=== PATIENT | female | born 1950 | race Caucasian/White ===

== ENCOUNTER → 2017-10-19 11:12 | Outpatient (CLI) | payer MEDICARE, OTHER, SELFPAY ==
--- NOTE | 2017-10-19 11:19 | RAD_ITS ---
STUDY: X-RAY - PELVIS AND LEFT HIP REASON FOR EXAM: Female, 67 years old. Left hip pain TECHNIQUE: Radiological exam, hip, unilateral, with pelvis when performed; 2 or 3 views. COMPARISON: None. FINDINGS: The right hip joint is normal. There is severe osteoarthritis of the left hip joint demonstrated by narrowing of the hip joint with subarticular sclerotic and cystic changes. There is buttressing of the femoral neck. No fractures RAD/HIP, UNI W/ Pelvis 2-3 Views IMPRESSION: Severe osteoarthritis of the left hip joint. No fracture Electronically Signed: Lawson Melissa, at 6:00 EDT Tel , Service support ,
== END ==
PROVIDERS: Family Provider Family Medicine; PCP Family Medicine; Visit Provider Family Medicine
DX: M16.12 Unilateral primary osteoarthritis, left hip (principal)
CPT/HCPCS: 73502

== ENCOUNTER → 2017-10-28 08:00 | Outpatient (CLI) | payer MEDICARE, OTHER, SELFPAY ==
[2017-10-28 10:14] LABS: Absolute Lymphocyte Count 0.99 X10^3/ul (0.83-4.51); Absolute Neutrophil Count 4.1 X10^3/uL (2.0-7.7); Basophil# 0.05 X10^3/uL; Basophil% 0.9 % (0-1); Eosinophil# 0.16 X10^3/uL; Eosinophils% 2.8 % (0-5); Hematocrit 41.4 % (37-47); Hemoglobin 13.3 g/dl (12.0-15.0); Lymphocyte # 0.99 X10^3/ul (4.0); Lymphocyte % 17.3 % (19-41); Mean Corp Hgb Conc 32.1 g/gl (32-36); Mean Corpuscular Hgb 30.2 pg (27.0-32.0); Mean Corpuscular Volume 94.1 fL (81-99); Mean Platelet Vol. 10.4 fl (6.2-12.0); Monocyte# 0.45 X10^3/uL; Monocyte% 7.9 % (0-10); Neutrophil # 4.07 X10^3/uL (2.7-7.7); Neutrophil % 70.9 % (47-70); Platelet Count 296 K/mm3 (150-450); RBC Distribution Width CV 12.7 % (11.6-14.6); RBC Distribution Width SD 43.9 fl (35.1-43.9); White Blood Count 5.7 K/mm3 (4.4-11.0)
[2017-10-28 10:17] LABS: POSITIVE COUNT NO; POSITIVE DIFFERENTIAL NO; POSITIVE MORPHOLOGY NO
[2017-10-28 10:35] LABS: Anion Gap 10 (5-15); BUN 15 mg/dL (7-18); BUN/Creat Ratio 16.3 RATIO (10-20); Calcium,Total 9.5 mg/dL (8.5-10.1); Chloride 106 mmol/L (98-107); Creatinine, Serum 0.92 mg/dL (0.55-1.02); EST Glomerular Filtration Rate 64 mL/min (>60); Est Glom Filt Rate - Afr Amer 78 mL/min (>60); Glucose 88 mg/dL (74-106); Potassium 4.2 mmol/L (3.5-5.1); Sodium Level 143 mmol/L (136-145); Thyroid Stim Hormone (TSH) 2.69 uIU/mL (0.358-3.74)
[2017-10-29 08:35] LABS: Vitamin D,25 Hydroxy 33.6 ng/mL (29.95-100.01)
== END ==
PROVIDERS: Family Provider Family Medicine; PCP Family Medicine; Visit Provider Family Medicine
DX: R53.83 Other fatigue (principal)
CPT/HCPCS: 36415; 80048; 82306; 84443; 85025

== ENCOUNTER → 2018-11-18 07:08 | Outpatient (CLI) | payer MEDICARE, OTHER, SELFPAY ==
[2018-11-18 07:19] LABS: Mucous, Urine 0 SEEN /hpf (<or=2+); Red Blood Cells-Urine 0 SEEN /hpf (0-5)
[2018-11-18 10:50] LABS: Absolute Lymphocyte Count 1.13 X10^3/uL (0.83-4.51); Basophil# 0.05 X10^3/uL; Color, Urine Yellow (Yellow); Eosinophil# 0.14 X10^3/uL; Eosinophils% 2.9 % (0-5); Glucose, Dipstick Normal (Normal); Hematocrit 41.1 % (37-47); Hemoglobin 12.8 g/dL (12.0-15.0); Ketone-Dipstick Negative (Negative); Leukocyte Esterase-Dipstick Negative /ul (Negative); Lymphocyte # 1.13 X10^3/ul (4.0); Lymphocyte % 23.7 % (19-41); Mean Corp Hgb Conc 31.1 g/dL (32-36); Mean Corpuscular Volume 96.5 fL (81-99); Mean Platelet Vol. 10.6 fl (6.2-12.0); Monocyte# 0.44 X10^3/uL; Monocyte% 9.2 % (0-10); NRBC Flagged by Analyzer 0 % (0-5); Nitrite-Dipstick Negative (Negative); Occult Blood-Urine Negative /ul (Negative); Platelet Count 276 K/mm3 (150-450); Protein-Dipstick Negative (Negative); RBC Distribution Width CV 13.1 % (11.6-14.6); RBC Distribution Width SD 46.9 fl (35.1-43.9); Red Blood Count 4.26 M/mm3 (4.2-5.4); Specific Gravity, Urine 1.015 (1.002-1.030); Urine Bilirubin Dipstick Negative (Negative); Urine Clarity Cloudy (Clear); Urine Urobilinogen Normal (Normal); White Blood Count 4.8 K/mm3 (4.4-11.0)
[2018-11-18 10:59] LABS: Squamous Epithelial Cells - UA 0-5 SEEN /hpf (5-10); White Blood Cells 0-5 SEEN /hpf (0-5)
[2018-11-18 11:00] LABS: Amorphous Sediment 3+; Bacteria 1+ /hpf (None Seen)
[2018-11-18 11:13] LABS: Anion Gap 8 (5-15); BUN 16 mg/dL (7-18); BUN/Creat Ratio 17.2 RATIO (10-20); Calcium,Total 9.7 mg/dL (8.5-10.1); Chloride 107 mmol/L (98-107); Creatinine, Serum 0.93 mg/dL (0.55-1.02); EST Glomerular Filtration Rate 63 mL/min (>60); Est Glom Filt Rate - Afr Amer 77 mL/min (>60); Glucose 83 mg/dL (74-106); Potassium 4.2 mmol/L (3.5-5.1); Sodium Level 143 mmol/L (136-145)
[2019-04-18 08:13] VITALS: BMI 16.5
== END ==
PROVIDERS: Family Provider Family Medicine; PCP Family Medicine; Referring Provider Family Medicine; Visit Provider Family Medicine
DX: R59.0 Localized enlarged lymph nodes (principal); R30.0 Dysuria; Z13.1 Encounter for screening for diabetes mellitus
CPT/HCPCS: 36415; 80048; 81001; 85025

== ENCOUNTER → 2018-11-22 10:44 | Outpatient (CLI) | payer MEDICARE, OTHER, SELFPAY ==
--- NOTE | 2018-11-22 10:50 | US_ITS ---
STUDY: THYROID ULTRASOUND REASON FOR EXAM: Female, 68 years old. Palpable left neck nodule TECHNIQUE: Ultrasound evaluation of the thyroid was performed with real-time and static miller-scale imaging. COMPARISON: None. FINDINGS: RIGHT LOBE: The right lobe of the thyroid gland measures 3.9 x 1.2 x 1.1 cm. There is a homogeneous echotexture. There are no demonstrated solid, cystic or complex lesions. LEFT LOBE: The left lobe of the thyroid gland measures 3.2 x 1.1 x 1 cm. There is a homogeneous echotexture. There are 2 solid nodules. The larger is solid measuring 1.3 x 1.2 x 2.6 cm with irregular margins and intranodular vascularity. The smaller nodule is 6 x 4 x 2 mm.. ISTHMUS: The isthmus measures 1 mm . The regional lymph nodes are normal. US/Head/Neck Soft Tissue IMPRESSION: 2 nodules in the left lobe of thyroid larger which measures 1.3 x 1.2 x .6 cm. If concern for malignancy fine-needle aspiration utilizing sonographic guidance recommended Electronically Signed: Timur Reich MD at 22:20 EDT , Service support ,
== END ==
PROVIDERS: Family Provider Family Medicine; PCP Family Medicine; Referring Provider Family Medicine; Visit Provider Family Medicine
DX: R59.0 Localized enlarged lymph nodes (principal)
CPT/HCPCS: 76536

== ENCOUNTER → 2018-12-09 15:52 | Outpatient (CLI) | payer MEDICARE, OTHER, SELFPAY ==
--- NOTE | 2018-12-09 13:00 | ASPS_PTH ---
PATIENT: JANE DAVIS LOC: [facility] U#:[id number] AGE/SX: 74/F ROOM: RE12/09/[address]: Dr. Ravinder Chappell MD : 1950 BED: DIS: SPEC #: [id number] RECD: 12/09/18 14:23 STATUS: PHILIPPE RERodney #: [id number] SARAH: 12/09/18 13:[address]: Ravinder Chappell DEPT: CYTOLOGY RECD BY: Marie Hunter ENTERED: 12/12/18 07:36 SP TYPE: ASPIRATION OTHR DR: Dr. Ty Ramsay MD Tissues: Thyroid gland, NOS Procedures: Special Stain Group II Cytology Other HEADER OPERATION: Left thyroid FNA PRE-OP DIAGNOSIS: Left thyroid nodule TISSUE SUBMITTED: Left thyroid FNA 6 slides DIAGNOSIS CYTOLOGY Fine needle aspiration, left thyroid nodule (smears): Adequate for evaluation. Negative, consistent with benign follicular nodule with cystic change. AM:paco 12/12/18 CYTOLOGY STUDY Slides are reviewed. CYTOLOGY GROSS Received are six smears labeled with the patient's name and designated per the requisition as left thyroid. Submitted for staining. / paco 12/09/18 TC:5 CPT: 80189
[2018-12-09 13:05] VITALS: BMI 16.5
== END ==
PROVIDERS: Family Provider Family Medicine; PCP Family Medicine; Referring Provider Surgery; Visit Provider Surgery
DX: E04.2 Nontoxic multinodular goiter (principal)
CPT/HCPCS: 88161; 88313

== ENCOUNTER → 2018-12-27 10:34 | Outpatient (CLI) | payer MEDICARE, OTHER, SELFPAY ==
[2018-12-09 13:05] VITALS: BMI 16.5
--- NOTE | 2018-12-27 10:37 | BI_ITS ---
MAMMOGRAPHY - BILATERAL SCREENING REASON FOR EXAM: Female, 68 years old. Routine annual screening examination. PERTINENT HISTORY: Sister with breast cancer. TECHNIQUE: Digital bilateral breast hank (3D mammographic acquisition) in the CC and MLO projections. 2-D mediolateral oblique (MLO) and craniocaudad (CC) views of both breasts were obtained. CAD: Full Field Digital Mammography with Computer Added Detection was performed. COMPARISON: Comparison is made with prior study dated November 24, 2016 and September 02, 2015. FINDINGS: Breast Composition: The breasts are extremely dense, which lowers the sensitivity of mammography. There are no dominant masses or suspicious calcifications. No other significant abnormalities are identified. There has been no significant change since the prior study. BI/SCREEN MAMM (CAD) W/HANK BILAT IMPRESSION: Stable bilateral screening mammogram. Yearly follow-up mammogram recommended. (A) ASSESSMENT CATEGORY: BIRADS Category 1: Negative. A letter regarding these results will be sent to the patient by the facility within 30 days. Approximately 10% of breast cancers are not detected by mammography. A normal mammogram should not delay biopsy of a clinically suspicious abnormality. [id number] Electronically Signed: Parish Worley, at 14:05 EDT , Service support ,
== END ==
PROVIDERS: Family Provider Family Medicine; PCP Family Medicine; Referring Provider Nurse Practitioner Women's Health; Visit Provider Nurse Practitioner Women's Health
DX: Z12.31 Encounter for screening mammogram for malignant neoplasm of breast (principal)
CPT/HCPCS: 77063; 77067

== ENCOUNTER → 2019-06-08 15:11 | Outpatient (CLI) | payer MEDICARE, OTHER, SELFPAY ==
[2019-04-18 08:13] VITALS: BMI 16.5
--- NOTE | 2019-06-08 15:17 | RAD_ITS ---
STUDY: X-RAY - LUMBAR SPINE REASON FOR EXAM: Female, 69 years old. low back pain, left hip pain worsening TECHNIQUE: 5 view(s) of the lumbar spine were obtained. COMPARISON: None FINDINGS: Normal lumbar lordosis. There is no substantial scoliosis. There is a normal alignment of the vertebrae. There is generalized demineralization of the vertebral bodies. Normal disc space heights. There is no demonstrated fracture. Atherosclerotic plaque is present. The soft tissue structures are unremarkable. Surgical clips seen in the pelvis. RAD/L/S Spine Min 4 Views IMPRESSION: Demineralization of the lumbar spine. Electronically Signed: Ryan Priest MD at 19:58 EDT , Service support ,
--- NOTE | 2019-06-08 15:17 | RAD_ITS ---
STUDY: X-RAY - PELVIS AND LEFT HIP REASON FOR EXAM: Female, 69 years old. low back pain, left hip pain worsening TECHNIQUE: 3 views of the pelvis and hip. COMPARISON: None. FINDINGS: There is a non-specific bowel gas pattern. Normal visualized soft tissue structures. Normal bilateral iliac wings, sacroiliac joints and visualized sacrum. Normal bilateral superior and inferior pubic rami. Normal pubic symphysis. Normal bilateral ischial tuberosities. There is severe narrowing and secondary degenerative changes of the left hip joint. The right hip joint space is preserved. Surgical clips seen in the pelvis. A moderate to large amount of stool is seen throughout the colon. RAD/HIP, UNI W/ Pelvis 2-3 Views IMPRESSION: Severe left hip DJD Electronically Signed: Ryan Priest MD at 19:58 EDT , Service support ,
== END ==
PROVIDERS: PCP Family Medicine; Referring Provider Family Medicine; Visit Provider Family Medicine
DX: M25.552 Pain in left hip (principal); M16.12 Unilateral primary osteoarthritis, left hip; M54.5 Low back pain
CPT/HCPCS: 72110; 73502

== ENCOUNTER → 2019-08-22 14:58 | Outpatient (CLI) | payer MEDICARE, OTHER, SELFPAY ==
[2019-04-18 08:13] VITALS: BMI 16.5
[2019-08-22 17:46] LABS: Albumin, Serum 4.2 g/dL (3.2-5.0)
== END ==
PROVIDERS: PCP Family Medicine; Referring Provider Specialist; Visit Provider Specialist
DX: Z01.812 Encounter for preprocedural laboratory examination (principal)
CPT/HCPCS: 36415; 82040

== ENCOUNTER 2019-08-30 07:09 | Observation (INO) | payer MEDICARE, OTHER, SELFPAY ==
[2019-04-18 08:13] VITALS: BMI 16.5
--- NOTE | 2019-08-16 16:47 | EKG12_ITS ---
Test Reason : PRE OP Blood Pressure : / mmHG Vent. Rate : 074 BPM Atrial Rate : 074 BPM P-R Int : 124 ms QRS Dur : 078 ms QT Int : 378 ms P-R-T Axes : 085 084 063 degrees QTc Int : 419 ms Normal sinus rhythm Normal ECG Confirmed by VICKIE GALO ([id number]), design editor PARRISH MONTEMAYOR ([id number]) on 08/24/2019 7:49:08 AM Referred By: Linda Vigil Confirmed By:VICKIE GALO
[2019-08-16 16:53] LABS: Absolute Lymphocyte Count 1.08 X10^3/uL (0.83-4.51); Absolute Neutrophil Count 5.5 X10^3/uL (2.0-7.7); Basophil# 0.06 X10^3/uL; Basophil% 0.8 % (0-1); Eosinophil# 0.08 X10^3/uL; Eosinophils% 1.1 % (0-5); Hematocrit 41.5 % (37-47); Hemoglobin 13.2 g/dL (12.0-15.0); Lymphocyte # 1.08 X10^3/ul (4.0); Lymphocyte % 14.8 % (19-41); Mean Corp Hgb Conc 31.8 g/dL (32-36); Mean Corpuscular Volume 97.4 fL (81-99); Mean Platelet Vol. 10.4 fl (6.2-12.0); Monocyte% 8.2 % (0-10); NRBC Flagged by Analyzer 0 % (0-5); Neutrophil # 5.45 X10^3/uL (2.7-7.7); Neutrophil % 74.8 % (47-70); Platelet Count 313 K/mm3 (150-450); RBC Distribution Width CV 12.3 % (11.6-14.6); RBC Distribution Width SD 44.1 fl (35.1-43.9); Red Blood Count 4.26 M/mm3 (4.2-5.4); White Blood Count 7.3 K/mm3 (4.4-11.0)
[2019-08-16 17:24] LABS: Anion Gap 7 (5-15); BUN 17 mg/dL (7-18); BUN/Creat Ratio 24.3 RATIO (10-20); Calcium,Total 9.6 mg/dL (8.5-10.1); Chloride 106 mmol/L (98-107); EST Glomerular Filtration Rate 88 mL/min (>60); Est Glom Filt Rate - Afr Amer 106 mL/min (>60); Glucose 93 mg/dL (74-106); Potassium 4.3 mmol/L (3.5-5.1); Sodium Level 141 mmol/L (136-145)
[2019-08-17 10:22] LABS: Thyroid Stim Hormone (TSH) 2.46 uIU/mL (0.358-3.74)
--- NOTE | 2019-08-22 20:01 | HP.PCM_ITS ---
History and Physical History and Physical Patient Name: Basia Garcia : 1950 From: SANDI FAM NP DATE OF SURGERY: 08/30/2019 SCHEDULED PROCEDURE: Left total hip arthroplasty HISTORY OF PRESENT ILLNESS: Preoperative history and physical exam was performed on August 16, 2019. This is a 69-year-old female who has been having ongoing left hip pain for years. Her pain is 4 on a scale of 10 on average and 10 on a scale of 10 with activity. She describes the pain as aching, sharp, sore and burning. She reports difficulty dressing, performing housework, shopping and leisure activities such as walking and biking. The patient has stumbled due to the left hip pain. She does report to start up pain. The pain is located in the left groin and lateral hip. The pain does wake her at night. The patient does perceive the left leg is shorter than the contralateral leg. Previous conservative treatments include rest, Tylenol, nonsteroidal anti-inflammatories, heat, elevation, physical therapy and home exercises. She denies chest pain, fevers, chills, shortness of breath or difficulty breathing. She currently reports taking azithromycin due to a sinus infection. The patient has a medical history for a transient ischemic attack at the age of 22. Surgical clearance has been obtained from Dr. Ramsay pending labs and EKG. After failing conservative measures and discussing treatment options with Dr. Iam Prieto the patient does wish to proceed with a left total hip arthroplasty. REVIEW OF SYSTEMS: ROS: Const: Denies anorexia, anxiety, change in appetite, fever and weight change,hard of hearing, and vision problems. CV: Denies chest pain, heart murmur, irregular heartbeat and peripheral vascular disease. Resp: Denies asthma, cough, pneumonia, sleep apnea, shortness of breath, tuberculosis and wheezing. GI: Reports constipation, but denies diarrhea, heartburn, nausea, bloody stools and vomiting, and difficulty swallowing. : Reports bladder infection, but denies incontinence. Musculo: Denies leg swelling, trouble walking and weakness and limp. Skin: Denies Raynaud's, history of shingles and tattoo. Neuro: Denies ambulatory dysfunction, dizziness, numbness/tingling and tremor. Psych: Reports depression and stress, but denies anxiety, insomnia and mental illness. Benjamin/Lymph: Denies anemia, bleeding/bruising tendency and past transfusion. Reviewed, no changes. PAST MEDICAL HISTORY: Advance Care Plan: No Advance Directives Effective Date: 06/17/2018 PMH: Medical Problems: Stroke - small TIA @ 22 Accidents: None Surgical Hx: Hysterectomy - (1987) Section - 1976;1979;1981;1984 Anesthesia Complications: None Assistive Devices: Glasses - Reading Reviewed, no changes. SOCIAL HISTORY: SH: Marital: .Occupation: Retired.Work Status: Retired.Hand Dominance: Right- Handed. Personal Habits: Cigarette Use: Former - early twenties.Smokeless Tobacco: Former user.E-Cigarette Use: Never used.Alcohol: Occasionally.Drug Use: Denies Use.Enjoy Exercising: Daily. Reviewed, no changes. VITALS: Ht: 64.5 Wt: 96lb Wt k.546 BMI: 16.2 BP: 118/150 Pulse: 72 Resp: 16 T: 98.0 T: 36.7C ALLERGIES: No Known Drug Allergy MEDICATIONS: Prilosec 20 mg one PO daily as needed, Tums 500 mg as needed, Vitamin D3 1000 Unit 1po qday, Tylenol Extra Strength 500 mg 2 by mouth every 8 hours, Azithromycin 500 mg as directed PRE-OP EXAM: General appearance:NORMAL Other: Eyes: Conjunctivae and lids: NORMAL Pupils: ERR Ears, Nose, Mouth, and Throat: NORMAL Other: Inspection of lips, teeth and gums: NORMAL Other: Respiratory: Assessment of respiratory effort: NORMAL Other: Auscultation of lungs: clear to auscultation no wheezes, rhonchi or rales. Cardiovascular: Auscultation of heart: regular rate and rhythm, no murmurs, gallops or rubs. Gastrointestinal: Exam of abdomen: soft, nontender, nondistended bowel sounds present. Neurological: see below Psychiatric: Orientation to time, place and person: NORMAL Other: Mood and affect: NORMAL Other: PHYSICAL EXAMINATION: The patient ambulates with an antalgic gait. Left hip is cool to touch. Skin is intact. Range of motion: 40 flexion. Internal rotation 10. 15 external rotation. Obligatory external rotation with flexion. Pain is reproduced in the groin with flexion, abduction and internal rotation. Left leg is 6 mm shorter than the right leg. Sensation intact to saphenous, sural, deep and superficial peroneal and tibial nerve distributions. Neurovascularly intact. IMAGING STUDIES: 3 views of left hip including weightbearing AP pelvis and AP hip and crossfire lateral obtained on August 16, 2019 reviewed reveals severe joint space narrowing, subchondral sclerosis and osteophyte formation consistent with severe left hip osteoarthritis. There are subchondral cysts in the acetabulum and a large cyst on the weightbearing dome. There is flattening of the femoral head and it has begun to collapse. IMPRESSION: 1. Osteoarthritis, left hip 2. History of a TIA at age 22 PLAN: Dr. Iam Prieto did discuss and review with the patient all treatment options including surgical versus nonsurgical. The patient does wish to proceed with the above-stated procedure. Potential risk, benefits and complications of the procedure were discussed in detail including but not limited to , infection, nerve and blood vessel damage, persistent pain, numbness, tingling, paresthesia, blood clot, pulmonary embolism and requirement for possible further surgery. The patient expressed full understanding and has no further questions for the doctor. The patient does agree to proceed with the above-stated procedure and has signed the surgery consent form. Discussed with the patient the risks associated with the COVID-19 virus including the risk of exposure while at the hospital. The patient was reassured local hospitals have low infection rates and taken all necessary precautions to limit patient exposure to COVID-19. Limiting the patient's time in the hospital may decrease their exposure to COVID-19. The patient was notified that we will need to comply with any screening or testing the hospital wishes to perform and that surgery may be delayed for any positive test results. This dictation was created using voice recognition software. Phonetic and/or g rammatical errors may exist. ___ I have re-examined the patient. There are no clinical changes since date of exam. ___ See progress notes for changes. ___ Dictated on admission Date: Time: Signature:
[2019-08-30] VITALS (15 sets, daily range): BP systolic 96–147; BP diastolic 54–76; PULSE 14–82; RESP 14–100; TEMP 35.4–36.9; O2SAT 96–100; BMI 17.1
[2019-08-30] MEDS: Lactated Ringers 1,000 ML 125 ML IV ×3 (07:00→22:01)
[2019-08-30] MEDS: Lactated Ringers 1,000 ML 75 ML IV (07:00)
[2019-08-30] MEDS: Lactated Ringers 1,000 ML 999 ML IV (07:17)
[2019-08-30] MEDS: Gabapentin 600 MG Tablet PO (07:18)
[2019-08-30] MEDS: Acetaminophen 500 MG Tablet 1000 MG PO ×3 (07:18→22:01)
[2019-08-30 07:46] LABS: Bedside Glucose 87 mg/dL (70-110)
[2019-08-30] MEDS: Cefazolin 2 GM in 0.9% Normal Saline 100 ML IV (08:27)
--- NOTE | 2019-08-30 08:30 | RAD_ITS ---
STUDY: X-RAY - PELVIS AND LEFT HIP REASON FOR EXAM: Female, 69 years old. LEFT TOTAL ANTERIOR HIP TECHNIQUE: 1 views of the pelvis and hip. COMPARISON: None. FINDINGS: Intraoperative imaging provided for left total hip replacement. RAD/Hip 1 view with Pelvis IMPRESSION: Intraoperative imaging provided for left total hip replacement. Electronically Signed: Parish Worley, at 11:09 EDT , Service support ,
[2019-08-30] MEDS: dexAMETHasone 10 MG/ML Vial IV (08:47)
--- NOTE | 2019-08-30 09:40 | PCM.OPRPT ---
Report of Operation Date of Procedure: 08/30/19 Pre-Operative Diagnosis: Left hip primary osteoarthritis Post-Operative Diagnosis: Left hip primary osteoarthritis Surgery/Procedure Performed:: Left minimally invasive direct anterior hip replacement Description of Surgical Findings:: Stable hip with equal leg lengths data communications technician: Nakia Coleman Type of Anesthesia:: Spinal Anesthesiologist: Demetrius Ellis Special Medications: 2 g Ancef, 1 g TXA at incision, 1 g TXA closure, 10 mg Decadron, joint cocktail (5 mg Duramorph, 30 mL of 0.5% Ropivicaine, 1000 units of epinephrine, 30 mg of Toradol) Specimen's removed: Bony cuts Estimated Blood Loss (mL): 100 Fluids Replaced: 1300 mL crystalloid Description of Procedure: Components used: 1. Accolade 2 Sharla femoral stem size 4 132? 2. Sharla trident 2 acetabular shell size 48 mm 3. Sharla X3 polyethylene D 4. Sharla Biolox delta 36mm, -5mm femoral head Brief history operative indications: 69yo F who failed conservative measures for their hip osteoarthritis. X-rays were consistent with osteoarthritis including joint space narrowing, osteophyte formation and subchondral cysts. Total hip replacement was discussed with the patient with risks and benefits including but not limited to blood loss, DVTs, PEs, neurovascular damage, dislocation, general risks of anesthesia including loss of life. Patient demonstrated an understanding medical clearance is obtained the patient was consented for surgery. Procedure: On the date of procedure the patient's L hip was marked in the preoperative area. Patient was then taken back to the operating room where anesthesia assumed control of the C-spine and airway and administered anesthetic. Patient was transferred to the operating table and placed in the supine position. The hips were placed at the break of the bed and a sacral bump was placed. The L lower extremity was then prepped out in a sterile fashion using chlorhexidine while the surgeon scrubbed. The PA was vital in the positioning of the patient. Upon reentering the room the L lower extremity was draped in the standard orthopedic fashion and the incision was marked. A timeout was called and everyone agreed upon the side, the site, the procedure be performed, antibody given, and patient's identity. At this time incision was made through skin, subcutaneous tissue, and fat down to fascia. The fascia was then incised and the TFL was retracted laterally. A retractor was placed on the lateral border of the femoral neck. Attention was directed to the inferior portion of the approach and all crossing vessels were identified and appropriately coagulated. A retractor was then placed on the medial portion of the femoral neck. The anterior capsule was then cleared of all soft tissue and then H shaped capsulotomy was made. The retractors were then placed inside the capsule. The femoral neck was identified and a cleanup cut was made. At this time a power corkscrew was used to remove the femoral head. Attention was then turned toward the acetabulum where the soft tissues were appropriately retracted and the acetabulum was sequentially reamed to 48 mm. A 48 mm cup was then selected and impacted into place. Acetabular liner was impacted into place and locking mechanism was verified. The position of the acetabular cup was then verified under live fluoroscopy. Attention was then turned to the femur. Soft tissue releases on the medial and lateral femoral neck were appropriately done, the leg was externally rotated and lateralized. A Vázquez retractor was placed medially and proximally to the greater trochanter this allowed appropriate visualization and exposure of the femoral canal. Rongeour was then used to remove excess lateral bone. A canal finder and entry broach were used to open the proximal canal. Once we verified we were down the femoral canal we subsequently broached up to a size 4 femur. The appropriate neck was placed in the previously selected head was trialed with a -5 mm neck. Traction was pulled and the hip was reduced with internal rotation. Once it was appropriately reduced and stability was checked. There was minimal shuck, equal leg lengths and appropriate stability with hyperextension and external rotation as well as with 90? flexion and internal rotation. Fluoroscopy was then also used to verify the position of the components and leg lengths using the contralateral side for comparison. The trial components were then dislocated the proximal femur was again exposed and the components were removed from the wound. The final components were verified and opened. The wound was copiously irrigated out with normal saline. The acetabulum was checked for any residual debris. The final components were placed and impacted. Traction and internal rotation were again used to reduce the hip. After adequate reduction the hip remained stable with appropriate leg lengths. The final components were once again checked with live fluoroscopy and were found to be satisfactory. The wound was then copiously irrigated with normal saline once more, and hemostasis was obtained. Closure was then done using #1 Vicryl runner to close the fascia. A 2-0 vicryl interuppted sutures were used to close the subcutaneous skin. A 3-0 Monocryl and Steri-Strips were used for final skin closure. A Silverlon dressing was placed. Patient was awakened by anesthesia and transferred to the [facility]. Patient was then transferred to the PACU for recovery. Postoperative plan: Patient will get 24 hours postop antibiotics. Patient will get in-house physical therapy and will be weight-bear as tolerated. Patient will follow up in office in 2 weeks for a wound check and x-rays. - Complications No intraoperative complications - Admit VTE Documentation VTE Present on Admission: No VTE Mechan Device Prophylaxis: SCD's, Thigh High JOSE Hose VTE Pharm Prophylaxis ordered?: Yes
--- NOTE | 2019-08-30 10:30 | RAD_ITS ---
STUDY: X-RAY - PELVIS AND LEFT HIP REASON FOR EXAM: Female, 69 years old. POST OP LEFT HIP TECHNIQUE: 2 views of the pelvis and hip. COMPARISON: Comparison is made with prior study dated June 08, 2019. FINDINGS: The patient is status post left total hip replacement. There is good alignment. Postoperative soft tissue changes. RAD/Hip Min 2 Views (Portable) IMPRESSION: Status post left total hip replacement. There is good alignment. Postoperative soft tissue changes. Electronically Signed: Parish Worley, at 10:44 EDT , Service support ,
[2019-08-30] MEDS: Senna/Docusate Sodium 1 Tablet 2 TABLET PO ×2 (13:18→22:00)
[2019-08-30] MEDS: Cefazolin 1 GM/50 ML BAG IV (16:43)
[2019-08-30] MEDS: Aspirin 81 MG TAB.CHEW PO (16:44)
[2019-08-30] MEDS: Ensure Surgery 237 ML LIQUID PO (16:45)
[2019-08-30] MEDS: traMADol 50 MG Tablet PO (20:24)
[2019-08-31] MEDS: Cefazolin 1 GM/50 ML BAG IV (00:17)
[2019-08-31 00:21] VITALS: BP 94/59; PULSE 58; RESP 16; TEMP 36.3; O2SAT 100
[2019-08-31 05:25] VITALS: BP 100/52; PULSE 66; RESP 16; TEMP 36.5; O2SAT 97
[2019-08-31] MEDS: 0.9% NaCl Peripheral Flush Adult/Peds IV (05:30)
[2019-08-31] MEDS: Acetaminophen 500 MG Tablet 1000 MG PO ×2 (05:33→13:07)
[2019-08-31 06:05] LABS: Hematocrit 33.7 % (37-47); Hemoglobin 10.6 g/dL (12.0-15.0); Mean Corp Hgb Conc 31.5 g/dL (32-36); Mean Corpuscular Hgb 31.4 pg (27.0-32.0); Mean Corpuscular Volume 99.7 fL (81-99); Mean Platelet Vol. 10.8 fl (6.2-12.0); Platelet Count 230 K/mm3 (150-450); RBC Distribution Width CV 12.7 % (11.6-14.6); RBC Distribution Width SD 46.1 fl (35.1-43.9); Red Blood Count 3.38 M/mm3 (4.2-5.4); White Blood Count 14.5 K/mm3 (4.4-11.0)
[2019-08-31 06:23] LABS: Anion Gap 5 (5-15); BUN 16 mg/dL (7-18); BUN/Creat Ratio 22.2 RATIO (10-20); Calcium,Total 8.8 mg/dL (8.5-10.1); Chloride 106 mmol/L (98-107); Creatinine, Serum 0.72 mg/dL (0.55-1.02); EST Glomerular Filtration Rate 85 mL/min (>60); Est Glom Filt Rate - Afr Amer 103 mL/min (>60); Estimated Creatinine Clearance 37.35 ml/min; Glucose 87 mg/dL (74-106); Potassium 4.3 mmol/L (3.5-5.1); Sodium Level 140 mmol/L (136-145)
[2019-08-31 09:16] VITALS: BP 106/48; PULSE 80; RESP 16; TEMP 36.4; O2SAT 95
[2019-08-31] MEDS: Aspirin 81 MG TAB.CHEW PO (09:25)
[2019-08-31] MEDS: Senna/Docusate Sodium 1 Tablet 2 TABLET PO (09:26)
[2019-08-31] MEDS: traMADol 50 MG Tablet PO (09:26)
[2019-08-31] MEDS: Famotidine 20 MG Tablet PO (09:26)
--- NOTE | 2019-08-31 09:28 | PCM.PN.ORT ---
Subjective: The patient was sitting in bedside chair upon examination. Patient denies any chest pain, shortness of breath, lightheadedness, nausea or vomiting, or calf pain. Pain is controlled on medications. No adverse overnight events. Patient has tolerated physical therapy very well. Plan will be for discharge home today. Objective: Vital signs stable and afebrile. Patient is able to plantarflex and dorsiflex actively. Sensation is intact to light touch to saphenous, sural, superficial and deep peroneal, and tibial distribution. Dressing is clean dry and intact. Negative Homans bilaterally, negative signs and symptoms of DVT. - Physical Exam Vitals/I&O's: Vital Signs Temp Pulse Resp BP Pulse Ox 97.5 F L 80 16 106/48 L 95 08/31/19 09:16 08/31/19 09:16 08/31/19 09:16 08/31/19 09:16 08/31/19 09:16 Oxygen Flow Rate (L/min) 6 Oxygen Delivery Method Room Air Weight: 45.2 kg Body Mass Index (BMI) 17.1 Intake and Output for Last 24 Hours 08/29/19 08/30/19 08/31/19 23:59 23:59 23:59 Intake Total 4380 / 4380 1441.66 / 1441.66 Balance 4380 / 4380 1441.66 / 1441.66 General: Alert, Oriented x3, Cooperative, No apparent distress Laboratory Results 08/31/19 05:22: WBC 14.5 H, RBC 3.38 L, Hgb 10.6 L, Hct 33.7 L, MCV 99.7 H, MCH 31.4, MCHC 31.5 L, RDW Std Deviation 46.1 H, RDW Coeff of Magaly 12.7, Plt Count 230, MPV 10.8 08/31/19 05:22: Sodium 140, Potassium 4.3, Chloride 106, Carbon Dioxide 29.0, Anion Gap 5, BUN 16, Creatinine 0.72, Estim Creat Clear Calc 37.35, Est GFR (MDRD) Af Amer 103, Est GFR (MDRD) Non-Af 85, BUN/Creatinine Ratio 22.2 H, Glucose 87, Calcium 8.8 Current Medications Acetaminophen (Tylenol) 1,000 mg PO Q8 [facility] Last Admin: 08/31/19 05:33 Dose: 1,000 mg Documented by: [facility], [facility]) [facility] Last Admin: 08/30/19 16:44 Dose: 81 mg Documented by: Cholecalciferol (Vitamin D (25mcg)) [facility] Last Admin: 08/30/19 13:17 Dose: 1,000 unit Documented by: Enteral Nutritional Formula (Ensure Surgery) 237 ml PO TIDCM [facility] Last Admin: 08/30/19 16:45 Dose: 237 ml Documented by: Famotidine (Pepcid) 20 mg PO DAILY [facility] Last Admin: 08/30/19 13:09 Dose: Not Given Documented by: Sodium Chloride () 250 mls @ 15 mls/hr IV .[id number] PRN PRN Reason: Saline Flush Sodium Chloride () 250 mls @ 15 mls/hr IV .[id number] PRN PRN Reason: Additional IVPB Infusion Insulin Human Lispro (Humalog Kwikpen ([facility])) 1 - 6 unit SC Q4H PRN PRN; Protocol PRN Reason: BG>/= 180, SEE PROTOCOL Ketorolac Tromethamine (Toradol (B[facility])) 15 mg IV Q6H PRN PRN PRN Reason: Pain Score 1-5/10 Stop: 09/01/19 07:10 Meloxicam (Mobic) 7.5 mg PO BID [facility] Ondansetron HCl (Zofran) 4 mg IV Q8H PRN PRN PRN Reason: NAUSEA Pantoprazole Sodium (Protonix) 20 mg PO DAILY PRN PRN Reason: REFLUX Promethazine HCl (Phenergan) 12.5 mg IM Q6H PRN PRN; Protocol PRN Reason: NAUSEA/VOMITING Senna/Docusate Sodium (Senokot-S, Ivette-Colace) 2 tablet PO BID [facility] Last Admin: 08/30/19 22:00 Dose: 2 tablet Documented by: Sodium Chloride () 5 - 15 ml IV UD PRN PRN Reason: SALINE FLUSH Last Admin: 08/31/19 05:30 Dose: 10 ml Documented by: Sodium Chloride () 10 - 40 ml IV UD PRN PRN Reason: SALINE FLUSH Tramadol HCl (Ultram) 50 - 100 mg PO Q6H PRN PRN PRN Reason: Pain Score 4-10/10 Last Admin: 08/30/19 20:24 Dose: 50 mg Documented by: Medical Necessity - Tobacco Use Smoking Status: Former smoker Tobacco Use: Non-smoker Assessment/Plan All Active Problems (Last Reviewed 04/18/19 @ 08:13 by Dinorah Gustafson) Atrophic vaginitis (Acute) Osteopenia after menopause (Acute) Multiple thyroid nodules (Acute) 1. S/P left direct anterior total hip arthroplasty POD #1 2. Continue Pain Medications: Tylenol, meloxicam, and tramadol 3. DVT Prophylaxis: Take 81 mg aspirin twice daily for 4 weeks postoperatively for DVT prophylaxis 4. PT/OT: Weightbearing as tolerated 5. H & H: 10.6/33.7, asymptomatic. Secondary to acute blood loss following surgery 6. Reactive leukocytosis: Currently 14.5, afebrile. Patient did receive Decadron intraoperatively 7. Encouraged Incentive Spirometry 8. Disposition: Plan will be for discharge home today. Patient is orthopedically stable. Tolerating physical therapy very well. Pain is been controlled. Prescriptions will be E scribed to right aid in [place]. Patient will follow-up per postop instructions. Patient has outpatient physical therapy established. I have reviewed the [place] Automated Rx Reporting System (OARRS) report for this patient for refill pattern and other prescriber involvement as part of the appropriate surveillance for the provision of acute and chronic controlled medications. The report was requested and reviewed on the date of this entry and was considered in the prescribing process.
[2019-08-31] MEDS: Ensure Surgery 237 ML LIQUID PO ×2 (09:30→13:14)
--- NOTE | 2019-08-31 09:34 | DCINST_ITS ---
Discharge Diet: No Restrictions Discharge Activity: May Not Drive - while taking narcotic pain medications. May shower in (days): 1 - Turn dressing away from water. Dressing must be intact to skin Ice area for (Minutes): 20 - Every 2 hours while awake Weight Bearing Status: Weight bearing as tolerated Elevate: Operative Extremity Additional Activity Instructions:: Wear elastic stockings for 2 weeks. DO NOT use alcohol with narcotic pain medication. DO NOT make important decisions while taking narcotic medication. If you have problems with taking your medication (rash, itching, nausea, etc.) call the office at once. Call your doctor if your incision/area has: Increased Pain/ Swelling, Increased Redness, Foul Smelling Discharge Call your doctor if you observe: Fever of 101 or Higher Remove Dressing in (days):: 4 - Okay to remove on September 04, 2019 Additional Instructions: Follow orthopedic postop instructions Allergies/Adverse Reactions: Allergies adhesive Allergy (Verified 08/17/19 08:55) Rash from bandaid Medications to take at Discharge Cholecalciferol (VIT D3) [Vitamin D3] 1,000 unit PO DAILY 08/17/19 Omeprazole Magnesium [Prilosec Otc] 20 mg PO PRN PRN 08/17/19 Acetaminophen [Tylenol] 1,000 mg PO Q8 #100 tab 08/31/19 Aspirin [Aspirin, Baby] 81 mg PO BIDCM #60 tab.chew 08/31/19 Meloxicam [Mobic] 7.5 mg PO BID #60 tab 08/31/19 Senna/Docusate Sodium [Senokot-S] 2 tab PO BID #10 tab 08/31/19 traMADol [Ultram] 50 - 100 mg PO Q6H PRN PRN 5 Days #40 tablet 08/31/19 The following prescriptions were given: Aspirin [Aspirin, Baby] 81 mg PO BIDCM #60 tab.chew Transmission Status: Pending to [facility] Meloxicam [Mobic] 7.5 mg PO BID #60 tab Transmission Status: Pending to [facility] Senna/Docusate Sodium [Senokot-S] 2 tab PO BID #10 tab Transmission Status: Pending to [facility] Acetaminophen [Tylenol] 1,000 mg PO Q8 #100 tab Transmission Status: Pending to [facility] traMADol [Ultram] 50 - 100 mg PO Q6H PRN PRN 5 Days #40 tablet PRN Reason: Pain Score 4-10/10 Transmission Status: Sent to [id number] Primary Care Physician: Ty Ramsay MD [Primary Care Provider] - Test Results: Test results from this visit will be discussed in further detail at your follow- up appointment, if applicable. Please Follow Up With: [facility] When: 09/04/19 @ 8:00 am with Eli Please Follow Up With: Josh Murcia PA-C When: 09/13/19 @ 8:30 am
--- NOTE | 2019-08-31 10:50 | CASEMGMT ---
PIPE HERNANDEZ Face to Face with patient for initial transition planning/care coordination assessment. RN CM introduced self and role at [facility]. Patient sitting in chair, alert and oriented. Patient willing to participate in assessment and is able to answer all questions appropriately. Care providers, pharmacy, and demographics verified. Patient wishes to discharge home, and is setup with [facility] for outpatient therapy. Patient states she has no further needs or concerns at this time. CM to follow for discharge planning needs that may arise. PCP: Devendra Specialists: Gordo Prieto; Hasting, [employer] Preferred Pharmacy: [facility] Insurance: [facility] Prescription Benefit: yes Living Will/HPOA: yes, Darien Garcia LNOK: , son Living Arrangements: Patient lives with in 2 story home with railing x2 to second floor. Patient independent at home prior to surgery. Transportation: DME/HHC: Patient states she has shower chair, walker, and raised toilet. Patient is scheduled for outpatient therapy at [facility] for Wednesday. Disposition Plan: Patient to discharge home with family support and follow up plans in place. Kassi BAIN, RN, CM
--- NOTE | 2019-08-31 10:55 | CASEMGMT ---
PIPE CM in to discuss ALAS form with patient. ALAS form reviewed with patient, voiced understand. No questions or concerns regarding ALAS form. Patient signed form and placed in chart. Copy provided to patient.
[2019-08-31 13:30] VITALS: BP 108/51; PULSE 70; RESP 14; TEMP 36.4; O2SAT 100
--- NOTE | 2019-08-31 14:26 | PHA.DC.MC ---
Pharmacy Service has performed discharge medication reconciliation and counseling for this patient. 1. ACETAMINOPHEN 1000MG Q8H 2. ASPIRIN 81MG PO BIDCM 3. MELOXICAM 7.5MG PO BID 4. SENNA/DOCUSATE 2T PO BID UNTIL 1ST BM, THEN PRN CONSTIPATION 5. TRAMADOL 50-100MG PO Q6H PRN PAIN 4-12/22 The patient's discharge medication list was reviewed for discrepancies and discrepancies were resolved. Home Medications Cholecalciferol (VIT D3) [Vitamin D3] 1,000 unit PO DAILY 08/17/19 Omeprazole Magnesium [Prilosec Otc] 20 mg PO PRN PRN 08/17/19 Acetaminophen [Tylenol] 1,000 mg PO Q8 #100 tab 08/31/19 Aspirin [Aspirin, Baby] 81 mg PO BIDCM #60 tab.chew 08/31/19 Meloxicam [Mobic] 7.5 mg PO BID #60 tab 08/31/19 Senna/Docusate Sodium [Senokot-S] 2 tab PO BID #10 tab 08/31/19 traMADol [Ultram] 50 - 100 mg PO Q6H PRN PRN 5 Days #40 tab 08/31/19 The patient was counseled on the following discharge medications and changes in medications for homegoing were reviewed. The Reason for Use, instructions for use, and potential side effects were reviewed for all new medications. The patient's questions regarding all of their medications were answered. The patient was able to verbally demonstrate an understanding of their discharge medications.
== END 2019-08-31 14:38 | disposition home or self-care (01) ==
LOC: SDC 08:21 → MS3 08:21
PROVIDERS: Anesthesiology; Admitting Provider Specialist; PCP Family Medicine; Referring Provider Family Medicine; Visit Provider Specialist
PROC: (CPT 27284; principal; 2019-08-30 08:05)
DX: M16.12 Unilateral primary osteoarthritis, left hip (principal); Z86.73 Personal history of transient ischemic attack (TIA), and cerebral infarction without residual deficits; Z87.891 Personal history of nicotine dependence; K21.9 Gastro-esophageal reflux disease without esophagitis; Z79.899 Other long term (current) drug therapy
CPT/HCPCS: 27130; 36415; 73501; 73502; 76000; 80048; 82962; 84443; 85025; 85027; 87081; 87635; 93005; 96361; 96365; 96366; 97110; 97116; 97162; 97166; 97530; 97535; 99218; 99251; C1776; G2023; J7120; A4216; G0378; G0379; G0463; J2405; U0003

== ENCOUNTER → 2019-11-15 08:49 | Outpatient (CLI) | payer MEDICARE, OTHER, SELFPAY ==
[2019-08-30 12:45] VITALS: BMI 17.1
--- NOTE | 2019-11-15 08:50 | US_ITS ---
STUDY: THYROID ULTRASOUND REASON FOR EXAM: Female, 69 years old. Nodules TECHNIQUE: Ultrasound evaluation of the thyroid was performed with real-time and static miller-scale imaging. COMPARISON: 11/22/2018. FINDINGS: RIGHT LOBE: The right lobe of the thyroid gland measures 3.8 x 1.2 x 1.2 cm. There is a homogeneous echotexture. There are no demonstrated solid, cystic or complex lesions. LEFT LOBE: The left lobe of the thyroid gland measures 3.9 x 1.5 x 1.4 cm. There is a homogeneous echotexture. Previously noted mid thyroid nodule measures 1.4 x 1.2 x 0.9 cm, relatively stable in size and new central cystic changes. Small lower pole cystic nodule measuring 5 x 4 x 3 mm noted which is similar in size but appears to be more homogeneously hypoechoic since the previous study. ISTHMUS: The isthmus measures 1 mm . The regional lymph nodes are normal. US/Thyroid IMPRESSION: 2 left thyroid nodules as noted above. Electronically Signed: Arias Carty DO at 21:29 EDT Tel [phone], Service support ,
== END ==
PROVIDERS: PCP Family Medicine; Referring Provider Surgery; Visit Provider Surgery
DX: E04.2 Nontoxic multinodular goiter (principal)
CPT/HCPCS: 76536

== ENCOUNTER → 2020-01-25 | Outpatient (CLI) | payer MEDICARE, OTHER, SELFPAY ==
[2019-08-30 12:45] VITALS: BMI 17.1
== END | disposition home or self-care (01) ==
LOC: LABSPEC 14:10
PROVIDERS: Visit Provider Family Medicine
DX: Z20.828 Contact with and (suspected) exposure to other viral communicable diseases (principal)
CPT/HCPCS: 87635; U0003

== ENCOUNTER → 2020-02-29 08:14 | Outpatient (CLI) | payer MEDICARE, OTHER, SELFPAY ==
[2019-08-30 12:45] VITALS: BMI 17.1
[2020-02-29 10:51] LABS: Cholesterol 203 mg/dL (200); High Density Lipoprotein 58 mg/dL; Triglycerides 185 mg/dL; Very Low Density Lipoprotein 37 mg/dL (5-40)
== END ==
PROVIDERS: PCP Family Medicine; Referring Provider Family Medicine; Visit Provider Family Medicine
DX: Z13.220 Encounter for screening for lipoid disorders (principal)
CPT/HCPCS: 36415; 80061

== ENCOUNTER → 2020-03-06 10:00 | Outpatient (CLI) | payer MEDICARE, OTHER, SELFPAY ==
[2019-08-30 12:45] VITALS: BMI 17.1
--- NOTE | 2020-03-06 10:03 | US_ITS ---
STUDY: ABDOMINAL ULTRASOUND - RIGHT UPPER QUADRANT REASON FOR VISIT: Female, 69 years old LIVER CYSTS TECHNIQUE: Ultrasound evaluation of the right upper quadrant was performed with real-time and static miller-scale imaging. TECHNICAL QUALITY: Adequate. COMPARISON: None. FINDINGS: Liver: The liver measures 16.6 cm. There is normal echogenicity of the liver. The bile ducts are within normal limits. There is hepatic color flow. The direction of portal flow is hepatopetal. 3 subcentimeters cysts are seen in the right lobe. The largest measures 9 mm x 7 mm x 8 mm along the inferior aspect of the right lobe of the liver. Gallbladder: Normal distended gallbladder. The gallbladder wall measures 1 mm. There is a negative sonographic Hudson''s sign. There is no pericholecystic fluid. There are no gallstones. Common Bile Duct (C.B.D.): The common bile duct measures 5.1 mm. Pancreas: Normal size of the head, body and tail of the pancreas. There is normal echogenicity of the pancreas. There is no demonstrated pancreatic mass or cyst. Right Kidney: Normal size of the right kidney. The right kidney measures 9.5 cm x 3.8 cm x 2.9 cm. Normal renal cortex. The right cortex measures 1 cm. There is no demonstrated renal mass or cyst. There is no right hydronephrosis. US/Liver IMPRESSION: 3 subcentimeters cysts are seen in the right lobe of the liver. Electronically Signed: Parish Worley, at 14:49 EST , Service support ,
== END ==
PROVIDERS: PCP Family Medicine; Referring Provider Family Medicine; Visit Provider Family Medicine
DX: K76.89 Other specified diseases of liver (principal)
CPT/HCPCS: 76705

== ENCOUNTER → 2020-04-23 08:49 | Outpatient (CLI) | payer MEDICARE, OTHER, SELFPAY ==
[2019-08-30 12:45] VITALS: BMI 17.1
[2020-04-23 08:13] VITALS: BMI 17.9
--- NOTE | 2020-04-23 08:52 | BI_ITS ---
MAMMOGRAPHY - BILATERAL SCREENING REASON FOR EXAM: Female, 70 years old. Routine annual screening examination. PERTINENT HISTORY: Sister with breast cancer. Mother with breast cancer. History of prior left excisional breast biopsy. TECHNIQUE: Digital bilateral breast hank (3D mammographic acquisition) in the CC and MLO projections. 2-D mediolateral oblique (MLO) and craniocaudad (CC) views of both breasts were obtained. CAD: Full Field Digital Mammography with Computer Added Detection was performed. COMPARISON: Comparison is made with prior examination dated 12/27/2018 and 02/23/2017. FINDINGS: Breast Composition: The breasts are extremely dense, which lowers the sensitivity of mammography. There are no dominant masses or suspicious calcifications. Stable vascular calcifications bilaterally. No other significant abnormalities are identified. There has been no significant change since the prior study. BI/SCRN MAMM (CAD)W/HANK BILAT IMPRESSION: Stable bilateral screening mammogram. Yearly follow-up mammogram recommended. (A) ASSESSMENT CATEGORY: BIRADS Category 2: Benign. A letter regarding these results will be sent to the patient by the facility within 30 days. Approximately 10% of breast cancers are not detected by mammography. A normal mammogram should not delay biopsy of a clinically suspicious abnormality. [id number] Electronically Signed: Parish Worley MD at 10:35 EST , Service support ,
--- NOTE | 2020-04-23 09:28 | BD_ITS ---
STUDY: DUAL ENERGY X-RAY ABSORPTIOMETRY / DXA REASON FOR EXAM: Female, 70 years old. SENIOR RESEARCH EXECUTIVE- EARLY SURGICAL AT 37 YRS OLD -- HX OF HRT -- TAKES VITAMIN D -- DOES HIGH AMOUNT OF EXERCISE -- FAMILY HX OF OSTEO- MOTHER -- HX OF LEFT HIP REPLACEMENT -- NINO OF 0.75 INCH- 1.25 INCHES TECHNIQUE: Bone Mineral Density (BMD) measurements of lumbar spine and right hip were obtained. COMPARISON: None. FINDINGS: Lumbar Spine (L1-L4): g/cm2 (0.903) / T-score (-2.5) / Z-score (-0.8) Findings are suggestive of osteoporosis with a high fracture risk. Right Femur Total: g/cm2 (0.663) / T-score (-2.7) / Z-score (-1.2) Right Femoral Neck: g/cm2 (0.639) / T-score (-2.9) / Z-score (-1.1) BD/Dexa Bone Density Study IMPRESSION: The patient is considered osteoporotic as outlined below according to World Ricardo Organization (WHO) criteria with a high fracture risk. Reference Information: The T-score is the number of standard deviations above or below the standard which is normal for young adults at their peak bone mineral density. The World Health Organization (WHO) interprets the T-scores as follows: Above -1 Normal bone density Between -1 and -2.5 Osteopenia Equal to / or below -2.5 Osteoporosis As a practical clinical guideline, osteopenia may be graded as follows: Mild -1 through -1.5 Moderate -1.6 through -2.0 Severe -2.1 through -2.4 The Z-score is the number of standard deviations above or below age-matched controls. A Z-score of less than -1.5 would be considered abnormal. References: 1. NIH Osteoporosis and Related Bone Diseases www osteo.org 2. International Society for Clinical Densitometry www iscd.org 3. National Osteoporosis Foundation www nof.org Electronically Signed: Parish Worley MD at 12:30 EST , Service support ,
== END ==
PROVIDERS: PCP Family Medicine; Referring Provider Nurse Practitioner Women's Health; Visit Provider Nurse Practitioner Women's Health
DX: Z12.31 Encounter for screening mammogram for malignant neoplasm of breast (principal); Z78.0 Asymptomatic menopausal state
CPT/HCPCS: 77063; 77067; 77080

== ENCOUNTER → 2020-06-03 | Outpatient (CLI) | payer MEDICARE, OTHER, SELFPAY ==
[2020-04-23 08:13] VITALS: BMI 17.9
== END | disposition home or self-care (01) ==
LOC: LABSPEC 13:31
PROVIDERS: PCP Family Medicine; Referring Provider Family Medicine; Visit Provider Family Medicine
DX: Z20.828 Contact with and (suspected) exposure to other viral communicable diseases (principal)
CPT/HCPCS: 87635; U0002

== ENCOUNTER 2021-04-28 12:23 | Outpatient (CLI) | payer MEDICARE, OTHER, SELFPAY ==
--- NOTE | 2021-04-28 12:24 | BI_ITS ---
MAMMOGRAPHY - BILATERAL SCREENING REASON FOR EXAM: Female, 71 years old. Routine annual screening examination. PERTINENT HISTORY: Sister with breast cancer. Mother with breast cancer. Remote left fibroadenoma excision of biopsy. TECHNIQUE: Digital bilateral breast hank (3D mammographic acquisition) in the CC and MLO projections. 2-D mediolateral oblique (MLO) and craniocaudad (CC) views of both breasts were obtained. CAD: Full Field Digital Mammography with Computer Added Detection was performed. COMPARISON: Comparison is made with prior study of 04/23/2020 and 12/27/2018. FINDINGS: Breast Composition: The breasts are extremely dense, which lowers the sensitivity of mammography. There are no dominant masses or suspicious calcifications. Stable bilateral vascular calcifications. No other significant abnormalities are identified. There has been no significant change since the prior study. BI/SCRN MAMM (CAD)W/HANK BILAT IMPRESSION: Stable bilateral screening mammogram. Yearly follow-up mammogram recommended. (A) ASSESSMENT CATEGORY: BIRADS Category 2: Benign. A letter regarding these results will be sent to the patient by the facility within 30 days. Approximately 10% of breast cancers are not detected by mammography. A normal mammogram should not delay biopsy of a clinically suspicious abnormality. [id number] Electronically Signed: Parish Worley MD at 13:30 EST ,
== END 2021-04-28 23:59 | disposition home or self-care (01) ==
LOC: OPBI 12:23
PROVIDERS: PCP Family Medicine; Referring Provider Nurse Practitioner Women's Health; Visit Provider Nurse Practitioner Women's Health
DX: Z12.31 Encounter for screening mammogram for malignant neoplasm of breast (principal); Z80.3 Family history of malignant neoplasm of breast
CPT/HCPCS: 77063; 77067

== ENCOUNTER → 2021-07-09 | Outpatient (CLI) | payer MEDICARE, OTHER, SELFPAY | END | disposition home or self-care (01) | LOC: LABSPEC 07-10 06:19 | PROVIDERS: PCP Family Medicine; Referring Provider Family Medicine; Visit Provider Family Medicine | DX: Z20.828 Contact with and (suspected) exposure to other viral communicable diseases (principal) | CPT/HCPCS: 87635; U0003; U0005 ==

== ENCOUNTER → 2021-12-02 | Outpatient (CLI) | payer MEDICARE, OTHER, SELFPAY ==
--- NOTE | 2021-12-02 11:49 | US_ITS ---
INDICATION: thyroid nodules EXAMINATION: Ultrasound US Thyroid (eg thyroid, parathyroid, parotid) TECHNIQUE: Cooney scale and color doppler imaging was performed of the thyroid gland. COMPARISON: None. FINDINGS: RIGHT THYROID LOBE: The right lobe of the thyroid gland demonstrates unremarkable echogenicity, unremarkable vascularity and unremarkable size, shape and configuration. No evidence of nodules visualized within the right lobe of the thyroid gland. The right lobe of the thyroid gland measures 3.9 x 1.1 x 0.8 cm. LEFT THYROID LOBE: The left lobe of the thyroid gland demonstrates unremarkable echogenicity and unremarkable vascularity. 2 nodules are visualized within the left lobe of the thyroid gland. The left lobe of the thyroid gland measures 3.7 x 1.5 x 1.2 cm. #1- Location: Midpole. Size: 1.7 x 1.4 x 0.9 cm Composition: 2 Echogenicity: 1 Shape: 0 Margins: 0 Echogenic Foci: 0 Total points 3, TR 3 nodule. #2- Location: Lower pole. Size: 0.4 x 0.4 x 0.2 cm. Composition: 2 Echogenicity: 2 Shape: 0 Margins: 0 Echogenic Foci: 0 Total points 4, TR 4 nodule. ISTHMUS: The isthmus demonstrates unremarkable echogenicity and unremarkable vascularity with no evidence of nodules. The isthmus measures 0.4 cm in AP diameter. US/Thyroid IMPRESSION: No nodules visualized in the right lobe of the thyroid gland. 1.7 cm TR 3 nodule visualized in the midpole of the left lobe of the thyroid gland. 0.4 cm TR 4 nodule visualized in the lower pole of the left lobe of the thyroid gland. TI-RADS follow up recommendations: TR1: Benign (0pts) No FNA biopsy. TR2: Not suspicious (2 pts) No FNA biopsy. TR3: Mildly suspicious (3 pts) FNA biopsy if nodule at least 2.5cm; follow if at least 1.5cm. TR4: Moderately suspicious (4-6 pts) FNA biopsy if nodule at least 1.5cm; follow if at least 1 cm. TR5: Highly suspicious (at least 7 pts) FNA if nodule at least 1cm; follow if at least 0.5cm. Electronically Signed: Mateo Snowden MD at 14:49 EDT ,
== END | disposition home or self-care (01) ==
LOC: US 11:46
PROVIDERS: PCP Family Medicine; Visit Provider Surgery
DX: E04.2 Nontoxic multinodular goiter (principal)
CPT/HCPCS: 76536

== ENCOUNTER → 2022-04-15 | Outpatient (CLI) | payer MEDICARE, OTHER, SELFPAY ==
[2022-04-15 10:24] LABS: Absolute Lymphocyte Count 0.97 X10^3/uL (0.83-4.51); Absolute Neutrophil Count 3.4 X10^3/uL (2.0-7.7); Basophil# 0.06 X10^3/uL; Basophil% 1.2 % (0-1); Eosinophil# 0.16 X10^3/uL; Eosinophils% 3.2 % (0-5); Hematocrit 40.2 % (37-47); Hemoglobin 12.9 g/dL (12.0-15.0); Lymphocyte # 0.97 X10^3/ul (0.83-4.51); Lymphocyte % 19.4 % (19-41); Mean Corp Hgb Conc 32.1 g/dL (32-36); Mean Corpuscular Hgb 30.8 pg (27.0-32.0); Mean Corpuscular Volume 95.9 fL (81-99); Mean Platelet Vol. 10.7 fl (6.2-12.0); NRBC Flagged by Analyzer 0 % (0-5); Neutrophil # 3.38 X10^3/uL (2.7-7.7); Neutrophil % 67.8 % (47-70); Platelet Count 286 K/mm3 (150-450); RBC Distribution Width CV 12.8 % (11.6-14.6); RBC Distribution Width SD 45.1 fl (35.1-43.9); Red Blood Count 4.19 M/mm3 (4.2-5.4)
[2022-04-15 10:39] LABS: Vitamin B12 659 pg/mL (211-911); Vitamin D,25 Hydroxy 26.6 ng/mL
[2022-04-15 10:55] LABS: ALB/GLOB Ratio 1.2 RATIO (0.9-2.4); AST(SGOT) 24 U/L (15-37); Alanine Aminotransfer ALT/SGPT 24 U/L (13-56); Albumin, Serum 3.9 g/dL (3.2-5.0); Alkaline Phosphatase 87 U/L (45-117); Anion Gap 5 (5-15); BUN 16 mg/dL (7-18); BUN/Creat Ratio 17.8 RATIO (10-20); Calcium,Total 9.2 mg/dL (8.5-10.1); Chloride 104 mmol/L (98-107); Cholesterol 192 mg/dL (200); EST Glomerular Filtration Rate 66 mL/min (>60); Est Glom Filt Rate - Afr Amer 79 mL/min (>60); Globulin 3.2 g/dL (2.2-4.2); Glucose 89 mg/dL (74-106); High Density Lipoprotein 59 mg/dL; Potassium 4.3 mmol/L (3.5-5.1); Protein, Total 7.1 g/dL (6.4-8.2); Sodium Level 140 mmol/L (136-145); Triglycerides 175 mg/dL; Very Low Density Lipoprotein 35 mg/dL (5-40)
[2022-04-16 14:57] LABS: ANTINUCLEAR ANTIBODIES DIRECT Negative (Negative)
== END | disposition home or self-care (01) ==
LOC: MTLAB 07:48
PROVIDERS: PCP Family Medicine; Referring Provider Family Medicine; Visit Provider Family Medicine
DX: Z00.00 Encounter for general adult medical examination without abnormal findings (principal); R25.1 Tremor, unspecified; M81.0 Age-related osteoporosis without current pathological fracture
CPT/HCPCS: 36415; 80053; 80061; 82306; 82607; 82746; 85025; 86038

== ENCOUNTER → 2022-05-05 | Outpatient (CLI) | payer MEDICARE, OTHER, SELFPAY ==
--- NOTE | 2022-05-05 12:34 | BI_ITS ---
MAMMOGRAPHY - BILATERAL SCREENING REASON FOR EXAM: Female, 72 years old. Routine annual screening examination. PERTINENT HISTORY: Remote left excisional breast biopsy. Sister with breast cancer. Mother with breast cancer. TECHNIQUE: Digital bilateral breast hank (3D mammographic acquisition) in the CC and MLO projections. 2-D mediolateral oblique (MLO) and craniocaudad (CC) views of both breasts were obtained. CAD: Full Field Digital Mammography with Computer Added Detection was performed. COMPARISON: Comparison is made with prior study dated 04/28/2021 and 04/23/2020. FINDINGS: Breast Composition: The breasts are extremely dense, which lowers the sensitivity of mammography. There are no dominant masses or suspicious calcifications. Stable bilateral vascular calcification. No other significant abnormalities are identified. There has been no significant change since the prior study. BI/SCRN MAMM (CAD)W/HANK BILAT IMPRESSION: Stable bilateral screening mammogram. Yearly follow-up mammogram recommended. (A) ASSESSMENT CATEGORY: BIRADS Category 1: Negative. A letter regarding these results will be sent to the patient by the facility within 30 days. Approximately 10% of breast cancers are not detected by mammography. A normal mammogram should not delay biopsy of a clinically suspicious abnormality. [id number] Electronically Signed: Parish Worley MD at 13:27 EST ,
--- NOTE | 2022-05-05 12:39 | BD_ITS ---
STUDY: DUAL ENERGY X-RAY ABSORPTIOMETRY / DXA REASON FOR EXAM: Female, 72 years old. [id number] TECHNIQUE: Bone Mineral Density (BMD) measurements of lumbar spine and right hip were obtained. COMPARISON: Comparison is made with prior study dated 04/23/2020. FINDINGS: Lumbar Spine (L1-L4): g/cm2 (0.782) / T-score (-2.4) / Z-score (-0.1) Findings are suggestive of osteopenia with a high fracture risk. Right Femur Total: g/cm2 (0.611) / T-score (-2.7) / Z-score (-1.0) Right Femoral Neck: g/cm2 (0.535) / T-score (-2.8) / Z-score (-0.9) The T-Scores on the most recent prior examination were: Lumbar Spine (L1-L4): There has been improvement of bone density since the previous examination. Right Femur Total: which represents an improvement of 07%. BD/Dexa Bone Density Study IMPRESSION: The patient is considered osteoporotic as outlined below according to World Ricardo Organization (WHO) criteria with a high fracture risk. There has been improvement of bone density since the previous examination. Reference Information: The T-score is the number of standard deviations above or below the standard which is normal for young adults at their peak bone mineral density. The World Health Organization (WHO) interprets the T-scores as follows: Above -1 Normal bone density Between -1 and -2.5 Osteopenia Equal to / or below -2.5 Osteoporosis As a practical clinical guideline, osteopenia may be graded as follows: Mild -1 through -1.5 Moderate -1.6 through -2.0 Severe -2.1 through -2.4 The Z-score is the number of standard deviations above or below age-matched controls. A Z-score of less than -1.5 would be considered abnormal. References: 1. NIH Osteoporosis and Related Bone Diseases www osteo.org 2. International Society for Clinical Densitometry www iscd.org 3. National Osteoporosis Foundation www nof.org Electronically Signed: Parsih Worley MD at 14:51 EST ,
== END | disposition home or self-care (01) ==
PROVIDERS: PCP Family Medicine; Visit Provider Family Medicine
DX: Z12.31 Encounter for screening mammogram for malignant neoplasm of breast (principal); M81.0 Age-related osteoporosis without current pathological fracture
CPT/HCPCS: 77063; 77067; 77080

== ENCOUNTER → 2022-05-25 | Outpatient (CLI) | payer MEDICARE, OTHER, SELFPAY | END | disposition home or self-care (01) | LOC: LABSPEC 13:01 | PROVIDERS: PCP Family Medicine; Referring Provider Nurse Practitioner Women's Health; Visit Provider Nurse Practitioner Women's Health | DX: N89.8 Other specified noninflammatory disorders of vagina (principal) | CPT/HCPCS: 87070; 87205 ==

== ENCOUNTER → 2022-12-17 | Outpatient (CLI) | payer MEDICARE, OTHER, SELFPAY ==
[2022-12-17 12:38] LABS: Erythrocyte Sedimentation Rate 13 mm/hr (0-30)
[2022-12-17 12:40] LABS: Hematocrit 41.4 % (37-47); Hemoglobin 13.1 g/dL (12.0-15.0); Mean Corp Hgb Conc 31.6 g/dL (32-36); Mean Corpuscular Hgb 30.5 pg (27.0-32.0); Mean Corpuscular Volume 96.5 fL (81-99); Mean Platelet Vol. 10.3 fl (6.2-12.0); Platelet Count 325 K/mm3 (150-450); RBC Distribution Width SD 42.9 fl (35.1-43.9); Red Blood Count 4.29 M/mm3 (4.2-5.4); White Blood Count 6.1 K/mm3 (4.4-11.0)
[2022-12-17 12:54] LABS: ALB/GLOB Ratio 1.2 RATIO (0.9-2.4); AST(SGOT) 30 U/L (15-37); Alanine Aminotransfer ALT/SGPT 27 U/L (13-56); Alkaline Phosphatase 96 U/L (45-117); Anion Gap 3 (5-15); BUN 13 mg/dL (7-18); BUN/Creat Ratio 16.2 RATIO (10-20); CRP 3.45 mg/L (0.0-3.0); Calcium,Total 9.4 mg/dL (8.5-10.1); Chloride 105 mmol/L (98-107); EST Glomerular Filtration Rate 74 mL/min (>60); Est Glom Filt Rate - Afr Amer 90 mL/min (>60); Globulin 3.3 g/dL (2.2-4.2); Glucose 93 mg/dL (74-106); Lipase 44 U/L (13-75); Potassium 4.2 mmol/L (3.5-5.1); Protein, Total 7.3 g/dL (6.4-8.2); Sodium Level 137 mmol/L (136-145)
== END | disposition home or self-care (01) ==
LOC: MTLAB 10:15
PROVIDERS: PCP Family Medicine; Referring Provider Family Medicine; Visit Provider Family Medicine
DX: R10.9 Unspecified abdominal pain (principal); E55.9 Vitamin D deficiency, unspecified
CPT/HCPCS: 36415; 80053; 82306; 83690; 85027; 85652; 86140

== ENCOUNTER → 2022-12-18 | Outpatient (CLI) | payer MEDICARE, OTHER, SELFPAY ==
[2022-12-20 09:07] LABS: H. PYLORI STOOL AG Negative (Negative)
== END | disposition home or self-care (01) ==
LOC: MTLAB 09:20
PROVIDERS: PCP Family Medicine; Referring Provider Family Medicine; Visit Provider Family Medicine
DX: R10.9 Unspecified abdominal pain (principal)
CPT/HCPCS: 87338

== ENCOUNTER → 2023-01-05 | Outpatient (CLI) | payer MEDICARE, OTHER, SELFPAY ==
--- NOTE | 2023-01-05 12:57 | US_ITS ---
INDICATION: thyroid nodule EXAMINATION: US Thyroid (eg thyroid, parathyroid, parotid) TECHNIQUE: Cooney scale and color doppler imaging was performed of the thyroid gland. COMPARISON: 12/02/2021. FINDINGS: RIGHT THYROID LOBE: Measures 4.6 x 1.2 x 1.1 cm. Homogeneous echotexture with normal vascularity. [No thyroid nodules are present. LEFT THYROID LOBE: Measures 4.3 x 1.7 x 1.7 cm. Homogeneous echotexture with normal vascularity. [Multiple nodules are present: -1.9 cm solid and cystic isoechoic nodule in the left midpole. -0.4 cm hypoechoic mostly solid nodule in the left lower pole. ISTHMUS: Measures 0.2 cm. No thyroid nodules are present. US/Thyroid IMPRESSION: -Slight increase in size of a 1.9 cm TR 3 nodule in the midpole of the left lobe. Recommend additional f/u US in one year. -Stable 0.4 cm TR 4 nodule in the lower pole of the left lobe. Electronically Signed: Clay Solomon MD at 21:09 EDT ,
== END | disposition home or self-care (01) ==
LOC: US 12:55
PROVIDERS: PCP Family Medicine; Referring Provider Surgery; Visit Provider Surgery
DX: E04.2 Nontoxic multinodular goiter (principal)
CPT/HCPCS: 76536

== ENCOUNTER → 2023-02-08 | Outpatient (CLI) | payer MEDICARE, OTHER, SELFPAY ==
--- NOTE | 2023-02-08 11:00 | FLU_PTH ---
PATIENT: JANE DAVIS LOC: [facility] U#:[id number] AGE/SX: 72/F ROOM: RE02/08/[address]: Dr. Ravinder Chappell MD : 1950 BED: DIS: 02/08/2023 SPEC #: [id number] RECD: 02/08/23 13:15 STATUS: PHILIPPE SMALL #: [id number] SARAH: 02/08/23 11:[address]: Ravinder Chappell DEPT: CYTOLOGY RECD BY: Mary Kay Johnson ENTERED: 02/08/23 13:16 SP TYPE: Fluid OTHR DR: Dr. Demetrius Osorio MD Tissues: A - Thyroid gland, NOS B - Thyroid gland, NOS Procedures: Special Stain Group II Surgery Specimen Level IV Cytospin Fluid HEADER OPERATION: Left thyroid aspiration PRE-OP DIAGNOSIS: Left thyroid nodule TISSUE SUBMITTED: A - Left thyroid nodule fluid, B - Left thyroid nodule x6 slides DIAGNOSIS CYTOLOGY A. Fine needle aspiration, left thyroid nodule (cytospin and cell block): Consistent with benign follicular nodule with cystic change, Edmond Category II. See comment. B. Fine needle aspiration, left thyroid nodule (smears): Consistent with benign follicular nodule, Edmond Category II. See comment. AM:paco 02/09/2023 COMMENT A & B. The Edmond System for thyroid diagnostic categorization was used in the evaluation of this case. Adequate for evaluation. CYTOLOGY STUDY Slides are reviewed. CYTOLOGY GROSS A - Received is 1 ml of bloody fluid labeled with the patient's name and and designated per the requisition as Left thyroid nodule. Submitted for cytology preparation including cell block. B - Received are six smears labeled with the patient's name and designated per the requisition as Left thyroid nodule. Submitted for staining. / paco 02/08/2023 TC:5 CPT: 12659 x2, 85091
== END | disposition home or self-care (01) ==
LOC: LABSPEC 12:44
PROVIDERS: PCP Family Medicine; Referring Provider Surgery; Visit Provider Surgery
DX: E04.1 Nontoxic single thyroid nodule (principal)
CPT/HCPCS: 88108; 88305; 88313

== ENCOUNTER → 2023-05-25 | Outpatient (CLI) | payer MEDICARE, OTHER, SELFPAY ==
--- NOTE | 2023-05-25 11:57 | BI_ITS ---
MAMMOGRAPHY - BILATERAL SCREENING REASON FOR EXAM: Female, 73 years old. Routine annual screening examination. PERTINENT HISTORY: Sister with breast cancer. Mother with breast cancer. TECHNIQUE: Digital bilateral breast hank (3D mammographic acquisition) in the CC and MLO projections. 2-D mediolateral oblique (MLO) and craniocaudad (CC) views of both breasts were obtained. CAD: Full Field Digital Mammography with Computer Added Detection was performed. COMPARISON: Comparison is made with prior study dated May 05, 2022 and April 28, 2021. FINDINGS: Breast Composition: The breasts are extremely dense, which lowers the sensitivity of mammography. There are no dominant masses or suspicious calcifications. Stable bilateral secretory calcifications. No other significant abnormalities are identified. There has been no significant change since the prior study. BI/SCRN MAMM (CAD)W/HANK BILAT IMPRESSION: Stable bilateral screening mammogram. Yearly follow-up mammogram recommended. (A) ASSESSMENT CATEGORY: BIRADS Category 2: Benign. A letter regarding these results will be sent to the patient by the facility within 30 days. Approximately 10% of breast cancers are not detected by mammography. A normal mammogram should not delay biopsy of a clinically suspicious abnormality. [id number] Electronically Signed: Parish Worley MD at 12:02 EDT ,
== END | disposition home or self-care (01) ==
LOC: OPBI 11:57
PROVIDERS: PCP Family Medicine; Referring Provider Nurse Practitioner Women's Health; Visit Provider Nurse Practitioner Women's Health
DX: Z12.31 Encounter for screening mammogram for malignant neoplasm of breast (principal); Z80.3 Family history of malignant neoplasm of breast
CPT/HCPCS: 77063; 77067

== ENCOUNTER → 2024-05-30 | Outpatient (CLI) | payer MEDICARE, OTHER, SELFPAY ==
--- NOTE | 2024-05-30 09:44 | BI_ITS ---
PROCEDURE: SCRN MAMM (CAD)W/HANK BILAT REASON FOR EXAM: F, Age 74 y/o , SCREENING MAMMOGRAM FOR BREAST CANCER. Family history of breast cancer in her sister at 45, mother at age 96 and a maternal aunt. TECHNIQUE: Bilateral screening digital breast tomosynthesis with 2D and 3D images. Computer aided detection. COMPARISON: 05/25/2023, 05/05/2022 FINDINGS: The breasts are extremely dense which lowers the sensitivity of mammography. The mammogram demonstrates that the patient has dense breasts. Supplemental screening with whole breast ultrasound or MRI may be considered for further evaluation. No suspicious masses, areas of developing architectural distortion, or suspicious calcifications. BI/SCRN MAMM (CAD)W/HANK BILAT IMPRESSION: There is no mammographic evidence of malignancy. BI-RADS 1: NEGATIVE. RECOMMEND ANNUAL MAMMOGRAPHIC SCREENING. Follow-up code: Routine Follow-up The patient will be notified of the results by letter. Reading Location: [id number]
== END | disposition home or self-care (01) ==
LOC: OPBI 09:44
PROVIDERS: PCP Family Medicine; Referring Provider Nurse Practitioner Women's Health; Visit Provider Nurse Practitioner Women's Health
DX: Z12.31 Encounter for screening mammogram for malignant neoplasm of breast (principal); Z80.3 Family history of malignant neoplasm of breast
CPT/HCPCS: 77063; 77067

== ENCOUNTER → 2024-09-05 | Outpatient (CLI) | payer MEDICARE, OTHER, SELFPAY ==
[2024-09-05 17:48] LABS: Absolute Lymphocyte Count 1.22 X10^3/uL (0.83-4.51); Absolute Neutrophil Count 5.8 X10^3/uL (2.0-7.7); Basophil# 0.06 X10^3/uL; Basophil% 0.7 % (0-1); Eosinophil# 0.19 X10^3/uL; Eosinophils% 2.4 % (0-5); Hematocrit 39.2 % (37-47); Hemoglobin 12.9 g/dL (12.0-15.0); Lymphocyte # 1.22 X10^3/ul (0.83-4.51); Lymphocyte % 15.2 % (19-41); Mean Corp Hgb Conc 32.9 g/dL (32-36); Mean Corpuscular Volume 94.2 fL (81-99); Mean Platelet Vol. 10.8 fl (6.2-12.0); Monocyte% 8.7 % (0-10); NRBC Flagged by Analyzer 0 % (0-5); Neutrophil # 5.82 X10^3/uL (2.7-7.7); Neutrophil % 72.8 % (47-70); Platelet Count 272 K/mm3 (150-450); RBC Distribution Width CV 12.5 % (11.6-14.6); RBC Distribution Width SD 43.3 fl (35.1-43.9); Red Blood Count 4.16 M/mm3 (4.2-5.4)
[2024-09-05 18:05] LABS: Erythrocyte Sedimentation Rate 11 mm/hr (0-30)
[2024-09-05 18:19] LABS: ALB/GLOB Ratio 1.8 RATIO (0.9-2.4); AST(SGOT) 33 U/L (<=31); Alanine Aminotransfer ALT/SGPT 21 U/L (<=34); Albumin, Serum 4.5 g/dL (3.4-4.8); Alkaline Phosphatase 90 U/L (35-104); Anion Gap 14 (5-15); BUN 20 mg/dL (4-19); Calcium,Total 9.9 mg/dL (7.6-11.0); Carbon Dioxide 23.1 mmol/L (21.0-32.0); Chloride 102 mmol/L (98-108); Creatinine, Serum 0.95 mg/dL (0.70-1.20); EST Glomerular Filtration Rate 62 (>60); Free T3 2.2 pg/mL (2.18-3.98); Globulin 2.5 g/dL (2.2-4.2); Glucose 90 mg/dL (70-99); Potassium 4.2 mmol/L (3.3-5.1); Sodium Level 139 mmol/L (133-145); Total Bilirubin 0.24 mg/dL (0.00-1.30)
== END | disposition home or self-care (01) ==
LOC: MTLAB 16:37
PROVIDERS: PCP Family Medicine; Referring Provider Family Medicine; Visit Provider Family Medicine
DX: E04.1 Nontoxic single thyroid nodule (principal); R53.83 Other fatigue
CPT/HCPCS: 36415; 80053; 84439; 84443; 84481; 85025; 85652

== ENCOUNTER → 2024-09-08 | Outpatient (CLI) | payer MEDICARE, OTHER, SELFPAY ==
--- NOTE | 2024-09-08 16:21 | US_ITS ---
PROCEDURE: THYROID 09/08/2024 REASON FOR EXAM: L THYROID NODULE INCREASING SIZE. CC DR. GROSSMAN TECHNIQUE: THYROID COMPARISON: Thyroid ultrasound 01/06/2023. FINDINGS: Right thyroid lobe size: 3.7 x 1.0 x 0.9 cm Left thyroid lobe size: 3.1 x 2.0 x 1.7 cm Isthmus: 1.0 cm Background parenchymal echotexture is homogeneous. Nodules: There is 1 left thyroid nodule as described: Within the mid left thyroid lobe measuring 2.1 x 1.9 x 1.4 cm, mixed cystic and solid, isodense, wider than tall, smooth margins without calcification. TR-2, not suspicious. US/Thyroid IMPRESSION: TR-2 left thyroid nodule. No new or enlarging thyroid nodule identified. Reading Location: [id number]
== END | disposition home or self-care (01) ==
LOC: US 16:19
PROVIDERS: PCP Family Medicine; Referring Provider Family Medicine; Visit Provider Family Medicine
DX: E04.1 Nontoxic single thyroid nodule (principal)
CPT/HCPCS: 76536

== ENCOUNTER → 2024-10-02 | Outpatient (CLI) | payer MEDICARE, OTHER, SELFPAY | END | disposition home or self-care (01) | LOC: PAVLAB 10:16 | PROVIDERS: PCP Family Medicine; Referring Provider Surgery; Visit Provider Surgery | DX: E04.2 Nontoxic multinodular goiter (principal) | CPT/HCPCS: 36415; 86376; 86800 ==